=== PATIENT | female | born 1970 | race Caucasian/White ===

== ENCOUNTER 2018-03-25 18:59 | Inpatient (IN) | payer OTHER ==
[~2018-03-25] VITALS: Ht 165.1 cm; Wt 108.4 kg
--- NOTE | ~2018-03-25 | EKG ---
[place] [address] [facility] [place] [address] ELECTROCARDIOGRAM REPORT Name: EDU TORRES Room #: 427-P ADM IN M.R.#: [id number] Admission: 03/25/18 Attend Phys: Addy Cummings MD Discharge: Date of : 68 Report #: [id number] THIS REPORT FOR: //name// [facility] ED Test Date: 2018-03-25 Test Time: 19:28:12 Pat Name: EDU TORRES Department: Room: [facility] Gender: F Hardwood Floor Refinisher: LUIS : 1970 Requested By: Mili Montague Order Number: [id number] MD: Rudi Orr Measurements Intervals [place] Rate: 65 P: 33 DC: 156 QRS: 11 QRSD: 96 T: 11 QT: 401 QTc: 417 Interpretive Statements Sinus rhythm No significant abnormality No previous ECG available for comparison Electronically Signed On 03-26-2018 8:45:49 ENGINEERING LEADER by Rudi Orr [email or web address] <ELECTRONICALLY SIGNED> By: Rudi Orr MD, [facility] 03/26/18 0845 [id number] 27 Rudi Orr MD, FACC /EPI
[2018-03-25 19:12] VITALS: BP 139/96
[2018-03-25 19:18] LABS: URINE BILIRUBIN NEGATIVE (Negative); URINE BLOOD NEGATIVE (Negative); URINE CLARITY CLEAR; URINE COLOR YELLOW; URINE GLUCOSE-RANDOM* NEGATIVE (Negative); URINE KETONES NEGATIVE (Negative); URINE LEUKOCYTES-REFLEX NEGATIVE (Negative); URINE NITRITE-REFLEX NEGATIVE (Negative); URINE PROTEIN (DIPSTICK) NEGATIVE (Negative); URINE SPECIFIC GRAVITY 1.025 (1.005-1.035); URINE UROBILINOGEN 0.2 E.U./dl (0.2-1.0)
[2018-03-25] MEDS ORDERED: AMOUR THYROID PO (19:25)
[2018-03-25] MEDS ORDERED: VITAMIN D5000 UNIT PO (19:25)
[2018-03-25] MEDS ORDERED: VITAMIN D1000 UNI1 PO (19:26)
[2018-03-25] MEDS ORDERED: CYMBALTA60 MG PO (19:26)
[2018-03-25] MEDS ORDERED: VENTOLIN HFA 1818 GM INH (19:26)
[2018-03-25 19:54] LABS: HEMOGLOBIN 12.6 gm/dL (12.0-15.0); MCH 28.6 pg (26.0-34.0); MCHC 33.2 g/dL (28.0-37.0); MCV 86.1 fL (80.0-100.0); RBC 4.41 mil/uL (4.20-5.00); RDW 14.4 % (10.5-14.5); WBC 5.5 thou/uL (4.0-11.0)
[2018-03-25 20:00] LABS: ANION GAP 6 mmol/L (7-16); BUN 12 mg/dL (7-18); CALCIUM 9.3 mg/dL (8.5-10.1); CHLORIDE 106 mmol/L (98-107); CO2 26 mmol/L (21-32); CREATININE 0.9 mg/dL (0.6-1.0); GLUCOSE 118 mg/dL (74-106); POTASSIUM 3.8 mmol/L (3.5-5.1); SODIUM 138 mmol/L (136-145)
[2018-03-25 20:09] LABS: ALBUMIN 3.6 g/dL (3.4-5.0); LIPASE 43 U/L (73-393); SGOT 24 U/L (15-37); SGPT 36 U/L (30-65); TOTAL BILIRUBIN 0.3 mg/dL (<0.1-1.0); TOTAL PROTEIN 7.2 g/dL (6.4-8.2); TROPONIN-I <0.06 ng/mL (<0.06)
[2018-03-25 21:51] VITALS: BP 138/87
[2018-03-25 22:15] VITALS: BP 154/101
[2018-03-26 04:19] VITALS: BP 123/63
[2018-03-26 04:49] LABS: CREATININE 0.9 mg/dL (0.6-1.0); POTASSIUM 3.8 mmol/L (3.5-5.1)
[2018-03-26 08:47] VITALS: BP 129/83
[2018-03-26 11:04] VITALS: BP 129/83
[2018-03-26 11:17] VITALS: BP 129/83
[2018-03-26 18:24] VITALS: BP 149/80
[2018-03-26 19:31] VITALS: BP 170/85
[2018-03-27 02:09] VITALS: BP 170/85
[2018-03-27] MEDS ORDERED: CLARITIN10 MG PO (02:39)
[2018-03-27] MEDS ORDERED: DIFLUCAN200 MG PO (02:40)
[2018-03-27] MEDS ORDERED: FLONASE 0.05%50 MCG NASAL (02:41)
[2018-03-27] MEDS ORDERED: NASA MIST SALIN75 ML (02:43)
[2018-03-27 07:41] VITALS: BP 162/82
[2018-03-27 17:30] VITALS: BP 131/73
[2018-03-27 19:25] VITALS: BP 127/75
[2018-03-28 03:35] VITALS: BP 132/67
[2018-03-28 06:13] LABS: HEMOGLOBIN 11.7 gm/dL (12.0-15.0); MCH 28.3 pg (26.0-34.0); MCHC 32.4 g/dL (28.0-37.0); MCV 87.3 fL (80.0-100.0); RBC 4.12 mil/uL (4.20-5.00); RDW 14.6 % (10.5-14.5); WBC 4.7 thou/uL (4.0-11.0)
[2018-03-28 06:30] LABS: ALBUMIN 3.1 g/dL (3.4-5.0); CALCIUM 8.5 mg/dL (8.5-10.1); CREATININE 0.9 mg/dL (0.6-1.0); MAGNESIUM 2.1 mg/dL (1.8-2.4); POTASSIUM 4.2 mmol/L (3.5-5.1); TOTAL BILIRUBIN 0.3 mg/dL (<0.1-1.0); TOTAL PROTEIN 6.4 g/dL (6.4-8.2)
[2018-03-28 07:47] VITALS: BP 156/78
[2018-03-28 16:45] VITALS: BP 146/84
[2018-03-28 20:23] VITALS: BP 144/76
[2018-03-29 05:27] VITALS: BP 149/83
[2018-03-29 07:48] VITALS: BP 154/89
[2018-03-29 11:01] VITALS: BP 154/89
[2018-03-29 12:21] VITALS: BP 153/93
== END 2018-03-29 15:05 | disposition home or self-care (01) | DRG 440 ==
LOC: ER 18:59 → EROBS 21:02 → 4E 21:02 → 3W 03-26 17:37
PROVIDERS: Internal Medicine; Nurse Practitioner Family; Student in an Organized Health Care Education/Training Program
DX: K85.90 Acute pancreatitis without necrosis or infection, unspecified (principal); M79.7 Fibromyalgia; K86.1 Other chronic pancreatitis; F32.9 Major depressive disorder, single episode, unspecified; J45.909 Unspecified asthma, uncomplicated; E03.9 Hypothyroidism, unspecified; E55.9 Vitamin D deficiency, unspecified; K21.9 Gastro-esophageal reflux disease without esophagitis; K59.00 Constipation, unspecified; K76.0 Fatty (change of) liver, not elsewhere classified; K57.90 Diverticulosis of intestine, part unspecified, without perforation or abscess without bleeding; E66.01 Morbid (severe) obesity due to excess calories; Z68.39 Body mass index [BMI] 39.0-39.9, adult; Z90.49 Acquired absence of other specified parts of digestive tract; Z79.899 Other long term (current) drug therapy; Z87.11 Personal history of peptic ulcer disease; Z87.442 Personal history of urinary calculi; Z88.2 Allergy status to sulfonamides; Z88.8 Allergy status to other drugs, medicaments and biological substances; Z91.041 Radiographic dye allergy status; Z91.040 Latex allergy status; Z88.5 Allergy status to narcotic agent; Z88.0 Allergy status to penicillin; Z91.013 Allergy to seafood; Z28.21 Immunization not carried out because of patient refusal
CPT/HCPCS: 10084; 10779